=== PATIENT | female | born 1975 | race Caucasian/White ===

== ENCOUNTER 2024-02-27 21:11 | Emergency (ER) | payer OTHER ==
[~2024-02-27] VITALS: Ht 167.6 cm; Wt 68.0 kg
[2024-02-27 21:20] VITALS: BP 122/77; PULSE 89; RESP 18; TEMP 98.1; O2SAT 98
[2024-02-27 22:48] LABS: FLU A ANTIGEN negative (NEGATIVE); FLU B ANTIGEN NEGATIVE (NEGATIVE)
[2024-02-27 23:20] VITALS: BP 122/77; PULSE 89; RESP 18; TEMP 98.1; O2SAT 98
== END 2024-02-27 23:20 | disposition home or self-care (01) ==
LOC: MED 21:11
DX: J06.9 Acute upper respiratory infection, unspecified (principal); Z20.822 Contact with and (suspected) exposure to COVID-19; F17.200 Nicotine dependence, unspecified, uncomplicated; Z71.6 Tobacco abuse counseling; Z98.890 Other specified postprocedural states; Z88.0 Allergy status to penicillin
CPT/HCPCS: 99283